=== PATIENT | female | born 1965 | race Caucasian/White ===

== ENCOUNTER → 2020-10-02 15:14 | Outpatient (CLI) | payer BC, SELFPAY ==
--- NOTE | ~2020-10-02 | MM_ITS ---
EXAMINATION: MM screening [facility] w penelope HISTORY: Screening mammogram TECHNIQUE: Craniocaudal and mediolateral oblique 3-D tomosynthesis images were obtained and synthetic 2-D images were generated. CAD analysis was submitted and interpreted. COMPARISON: 12/09/2018, 07/07/2016, 06/04/2014 by lateral digital screening mammogram examinations BREAST PARENCHYMAL COMPOSITION: There are scattered areas of fibroglandular density. FINDINGS: Stable mild fibroglandular asymmetry. Stable approximately 5.7 mm circumscribed nodular den sity in the anterior mid inner right breast, likely a benign intramammary lymph node. Stable circumsc ribed 5.9 mm opacity in the outer mid right breast, likely another benign intramammary lymph node. Th ere is no evidence of suspicious mass, calcification, or architectural distortion to suggest malignan cy in either breast. There has been no suspicious interval change. IMPRESSION: 1. No mammographic evidence of malignancy. 2. Recommend routine screening mammography in one year. BI-RADS Category 2: Benign finding(s). Reviewed, dictated and finalized at location A. CHEMICALS OPERATOR
== END ==
PROVIDERS: Visit Provider Obstetrics & Gynecology
DX: Z12.31 Encounter for screening mammogram for malignant neoplasm of breast (principal)
CPT/HCPCS: 77063; 77067

== ENCOUNTER → 2022-07-22 15:59 | Outpatient (CLI) | payer BC, SELFPAY ==
--- NOTE | ~2022-07-22 | MM_ITS ---
EXAMINATION: MM screening [facility] BI w penelope HISTORY: Screening TECHNIQUE: Craniocaudal and mediolateral oblique 3-D tomosynthesis images were obtained and synthetic 2-D images were generated. CAD analysis was submitted and interpreted. COMPARISON: Comparison to multiple prior studies sequentially, with oldest reviewed study dated 05/08. BREAST PARENCHYMAL COMPOSITION: There are scattered areas of fibroglandular density. FINDINGS: There is no evidence of suspicious mass, calcification, or architectural distortion to sugg est malignancy in either breast. There has been no suspicious interval change. IMPRESSION: 1. No mammographic evidence of malignancy. 2. Recommend routine screening mammography in one year. BI-RADS Category 1: Negative Reviewed, dictated and finalized at location A. EXPERIENCE ARCHITECT
== END ==
DX: Z12.31 Encounter for screening mammogram for malignant neoplasm of breast (principal)
CPT/HCPCS: 77063; 77067

== ENCOUNTER 2023-03-03 08:00 | Outpatient (CLI) | payer BC, SELFPAY ==
[2023-03-03 18:13] LABS: Alanine Aminotransferase 24 U/L (6-35); Albumin Level 3.8 g/dL (3.5-5.1); Alkaline Phosphatase 85 U/L (38-126); Anion Gap 3 mmol/L (8-16); Aspartate Amino Transferase 38 U/L (14-36); Bilirubin,Total 0.4 mg/dL (0.2-1.3); Blood Urea Nitrogen 14 mg/dL (7-17); Carbon Dioxide 31 mmol/L (22-30); Chloride 101 mmol/L (98-107); Cholesterol 172 mg/dL (0-200); Estimated Glomerular Filt Rate > 60; Glucose 81 mg/dL (65-110); HDL Direct 40 mg/dL; Potassium 4.1 mmol/L (3.4-5.0); Sodium 135 mmol/L (137-145); Triglycerides 64 mg/dL (<150)
[2023-03-03 18:24] LABS: LDL Cholesterol Direct 105 mg/dL
[2023-03-03 19:49] LABS: Hemoglobin A1C 5.5 % (<5.7)
== END 2023-03-03 08:01 | disposition home or self-care (01) ==
LOC: ANHGOSHLAB 08:02
PROVIDERS: PCP Emergency Medicine; Visit Provider Emergency Medicine
DX: I10 Essential (primary) hypertension (principal)
CPT/HCPCS: 36415; 80053; 80061; 83036; 84443

== ENCOUNTER 2023-03-20 15:45 | Outpatient (RCR) | payer BC, SELFPAY ==
--- NOTE | 2023-03-06 15:50 | OPREHPOC ---
Outpatient Therapy Plan of Care This is a Multidisciplinary Plan of Care that may contain components documented by all disciplines (PT, OT, and ST.) PT Problem 1 PT Problem #1 Knowledge Deficit PT Goal 1 Goal 1. Patient will perform independent HEP Target Visit 4 PT Problem 2 PT Problem #2 Impaired Strength PT Goal 1 Goal 1. Patient will report no incontinence in the last 2 weeks Target Visit 4 PT Goal 2 Goal 2. Improve pelvic floor strength to 2/5 and endurance to 5 seconds to decrease incontinence Target Visit 4
--- NOTE | 2023-03-06 15:50 | PTOPEVAL1 ---
Assessment and note entered by Karen Black DPT Evaluation Information Assessment Status Evaluation Subjective Information Pt had been noticing swelling in her feet/ankles and then her BP meds were changed. States she had been voiding frequently but that has gotten better since the medicine change. Reports minimal incontinence, usually occurs after standing up after voiding. In the last week: urinates 4 times a day and 1-2 times at night. Denies urine leakage in the last week. Can hold urine at least 30 minutes. BM 1 or more a day. Denies pain with b/b. Denies history of pelvic pain. Pt has been 2 times, 2 vaginal deliveries without complications. No other CLINICAL APPLICATION MANAGER or b/b history. Patient goal: decrease urinary frequency at night, see what therapy can offer Reported Pain Level Pain Score 0: Self Report Assessment PT Clinical Summary The patient is presenting to skilled therapy with infrequent incontinence and reports urinary frequency that has improved with a medicine change . She presents with significantly decreased pelvic floor strength and endurance which are contributing to her incontinence. She will benefit from therapy to address these impairments and safely reduce incontinence. Plan of Care Interventions Manual Therapy,Neuro Re-education,Patient/ Caregiver Education,Therapeutic Activities, Therapeutic Exercise PT Services Indicated Yes Treatment Frequency and 1 visit every other week for 3 visits total Duration These treatments will address the objective and functional deficits as defined above. The patient will be advanced safely and appropriately in order for the patient to progress towards his/her prior level of function. Additional exercises will be introduced and as well as a comprehensive home exercise program upon discharge, if needed, ?to ensure carryover of functional gains achieved in the clinic. This treatment plan has been reviewed and agreement upon by the patient.
--- NOTE | 2023-04-03 08:20 | PTOPDC ---
Assessment and note entered by Karen Black DPT Evaluation Information Assessment Status Discharge - Pt Not Present Subjective Information - Assessment PT Clinical Summary Patient called to self discharge from therapy. She will need a new order to return in the future. Plan of Care PT Services Indicated No
== END 2023-04-03 09:02 | disposition home or self-care (01) ==
LOC: ANHGOSHPT 15:45
PROVIDERS: PCP Emergency Medicine; Visit Provider Emergency Medicine
DX: R32 Unspecified urinary incontinence (principal)
CPT/HCPCS: 97112; 97161; 97530

== ENCOUNTER 2025-05-28 10:10 | Outpatient (CLI) | payer BC, SELFPAY ==
--- NOTE | ~2025-05-28 | MM_ITS ---
EXAMINATION: MM screening [facility] BI w penelope HISTORY: Screening TECHNIQUE: Craniocaudal and mediolateral oblique 3-D tomosynthesis images were obtained and synthetic 2-D images were generated. CAD analysis was submitted and interpreted. COMPARISON: Comparison to multiple prior studies sequentially, with oldest reviewed study dated 07/07/2016. BREAST PARENCHYMAL COMPOSITION: Not dense: There are scattered areas of fibroglandular density. FINDINGS: There is no evidence of suspicious mass, calcification, or architectural distortion to suggest malignancy in either breast. There has been no suspicious interval change. IMPRESSION: 1. No mammographic evidence of malignancy. 2. Recommend routine screening mammography in one year. BI-RADS Category 1: Negative Reviewed, dictated and finalized at location O.
== END 2025-05-28 10:11 | disposition home or self-care (01) ==
PROVIDERS: PCP Internal Medicine; Visit Provider Internal Medicine
DX: Z12.31 Encounter for screening mammogram for malignant neoplasm of breast (principal)
CPT/HCPCS: 77063; 77067